=== PATIENT | female | born 1985 | race Caucasian/White ===

== ENCOUNTER 2018-08-12 19:19 | Emergency (ER) | payer OTHER ==
[~2018-08-12] VITALS: Ht 162.6 cm; Wt 68.0 kg
[~2018-08-12 19:19] MED LIST: ENDOMETRIN100 MG/INS; PRENATAL PLUS I1 TAB PO; PRENATAL TABLE1 EAC1 PO
== END 2018-08-12 22:30 | disposition home or self-care (01) ==
LOC: ER 19:19
DX: R10.2 Pelvic and perineal pain (principal); M54.5 Low back pain; R68.83 Chills (without fever); R30.0 Dysuria; R50.9 Fever, unspecified

== ENCOUNTER 2020-06-21 11:00 | Day surgery (SDC) | payer OTHER | END 2020-06-21 21:20 | disposition home or self-care (01) | LOC: CIR.AMB 11:00 | PROVIDERS: ATTEND Obstetrics & Gynecology | DX: N84.0 Polyp of corpus uteri (principal); N72 Inflammatory disease of cervix uteri; Z20.828 Contact with and (suspected) exposure to other viral communicable diseases ==

== ENCOUNTER 2021-08-29 14:31 | Emergency (ER) | payer OTHER ==
[~2021-08-29] VITALS: Ht 165.1 cm; Wt 62.1 kg
== END 2021-08-29 19:41 | disposition home or self-care (01) ==
LOC: ER 14:31
DX: N93.9 Abnormal uterine and vaginal bleeding, unspecified (principal); D25.9 Leiomyoma of uterus, unspecified

== ENCOUNTER 2022-09-15 12:26 | Emergency (ER) | payer OTHER ==
[~2022-09-15] VITALS: Ht 162.6 cm; Wt 67.1 kg
[2022-09-15] MEDS ORDERED: BENZONATATE200 M1 (12:34)
== END 2022-09-15 14:37 | disposition home or self-care (01) ==
LOC: ER 12:26
DX: J40 Bronchitis, not specified as acute or chronic (principal); R05.3 Chronic cough; U09.9 Post COVID-19 condition, unspecified

== ENCOUNTER 2022-11-13 07:55 | Day surgery (SDC) | payer OTHER ==
[~2022-11-13 07:55] MED LIST changes: +BENZONATATE200 M1
== END 2022-11-13 21:40 | disposition home or self-care (01) ==
LOC: CIR.AMB 07:55
PROVIDERS: ATTEND Obstetrics & Gynecology
DX: O02.0 Blighted ovum and nonhydatidiform mole (principal); O72.2 Delayed and secondary postpartum hemorrhage; Z20.822 Contact with and (suspected) exposure to COVID-19

== ENCOUNTER 2023-02-09 15:56 | Emergency (ER) | payer OTHER ==
[~2023-02-09] VITALS: Ht 162.6 cm; Wt 68.0 kg
== END 2023-02-10 12:26 | disposition home or self-care (01) ==
LOC: ER 15:56
DX: R10.2 Pelvic and perineal pain (principal)

== ENCOUNTER 2023-02-12 08:35 | Day surgery (SDC) | payer OTHER | END 2023-02-12 21:45 | disposition home or self-care (01) | LOC: CIR.AMB 08:35 | PROVIDERS: ATTEND Obstetrics & Gynecology | DX: D39.0 Neoplasm of uncertain behavior of uterus (principal); N85.8 Other specified noninflammatory disorders of uterus; Z20.822 Contact with and (suspected) exposure to COVID-19 ==

== ENCOUNTER → 2023-04-03 | Emergency (ER) | payer OTHER ==
[~2023-04-03] VITALS: Ht 162.6 cm; Wt 68.0 kg
[2023-04-03 11:52] LABS: HEMATOCRIT 32.6 % (36.0-45.00); HEMOGLOBIN 10.8 g/dL (12.0-15.00); MEAN CELL VOLUME 84.8 fL (80.00-100.00); MEAN CORPUSCULAR HEMOGLOBIN 28.1 pg (27.00-32.0); MEAN CORPUSCULAR HGB CONC 33.1 g/dl (32.0-36.0); PLATELET COUNT 215 K/uL (150-450); RED BLOOD COUNT 3.84 M/uL (4.00-6.00); RED CELL DISTRIBUTION WIDTH 16.7 % (11.5-14.5)
== END | disposition home or self-care (01) ==
LOC: ER 10:22
PROVIDERS: Emergency Medicine
DX: N93.8 Other specified abnormal uterine and vaginal bleeding (principal)

== ENCOUNTER 2023-08-25 09:25 | Day surgery (SDC) | payer OTHER ==
[~2023-08-25] VITALS: Ht 162.6 cm; Wt 68.5 kg
[2023-08-25 01:00] LABS: HEMATOCRIT 28.7 % (36.0-45.00); HEMOGLOBIN 9.4 g/dL (12.0-15.00); MEAN CELL VOLUME 85.1 fL (80.00-100.00); MEAN CORPUSCULAR HEMOGLOBIN 27.9 pg (27.00-32.0); MEAN CORPUSCULAR HGB CONC 32.8 g/dl (32.0-36.0); PLATELET COUNT 268 K/uL (150-450); RED BLOOD COUNT 3.38 M/uL (4.00-6.00); RED CELL DISTRIBUTION WIDTH 15.9 % (11.5-14.5)
[2023-08-25 01:16] LABS: INR 0.97; PARTIAL THROMBOPLASTIN TIME 26.6 SECONDS (22.0-34.0); PROTHROMBIN TIME 10.2 SECONDS (9.0-11.5)
[2023-08-25 01:49] LABS: ALBUMIN 3.9 gm/dL (3.4-5.0); BILIRUBIN TOTAL 0.15 mg/dL (0.3-1.2); CALCIUM 9.7 mg/dL (8.5-10.1); CREATININE SERUM 0.76 mg/dL (0.55-1.02); GFR 85.63; GLOBULINA 3.4 G/DL (2.4-3.5); POTASSIUM 4.04 mEq/L (3.5-5.1); TOTAL PROTEIN 7.3 gm/dL (6.4-8.2)
[~2023-08-25 09:25] MED LIST changes: +KETOROLAC TROMETHAMINE 30 MG VIAL IV STA; +RINGERS SOLUTION,LACTATED 1,000 ML IV ONE
[2023-08-25] MEDS ORDERED: CHLORHEXIDINE GLUCONATE 120 ML BOTTLE TOP ONE ×2 (16:13→17:30)
[2023-08-25] MEDS ORDERED: POVIDONE-IODINE 118 ML BOTT TOP ONE ×2 (16:13→17:30)
== END 2023-08-25 21:00 | disposition home or self-care (01) ==
LOC: ER 09:25 → SEC-K 09:25 → O/R 09:25 → CIR.AMB 09:25 → O/R 13:59 → SEC-K 13:59 → EDSTATUS 16:00 → O/R 21:00 → CIR.AMB 21:00
PROVIDERS: ATTEND General Practice
DX: O03.4 Incomplete spontaneous abortion without complication (principal); O72.2 Delayed and secondary postpartum hemorrhage